=== PATIENT | male | born 1970 | race Caucasian/White ===

== ENCOUNTER 2016-11-03 11:28 | Emergency (ER) | payer OTHER ==
[~2016-11-03] VITALS: Ht 188 cm; Wt 117.8 kg
[~2016-11-03 11:28] MED LIST: CENTRUM ULTRA1 EACH PO; Cozaar PO; FLONASE16 G1 BOTH NARES; KEPPRA250 MG PO; KEPPRA750 MG PO; Keppra PO; LEVAQUIN750 MG PO; LOPRESSOR100 M1 PO; MEDROL DOSEPAK4 MG PO; METOPROLOL SUC100 MG PO; Mevacor PO; NEULASTA6 MG/0.6 M SC; PROAIR HFA8.5 GM IH; TAMIFLU75 MG PO; VALACYCLOVIR1000 MG PO; Vancocin Oral Solution PO; ZYRTEC10 M2 PO
[2016-11-03 12:48] LABS: EOSINOPHIL (%) 0 % (0-5); HEMATOCRIT 43.8 % (38.0-50.0); IMMATURE GRANULOCYTE (%) 0.3 % (0.0-0.7); INSTRUMENT ABS NEUTROPHIL CT 8.9 K/uL; LYMPHOCYTE COUNT 1.1 K/uL (1.0-2.8); MCH 33.3 PG (29.0-34.0); MCHC 34.2 G/DL (30.0-36.0); MCV 97.3 FL (86-99); MEAN PLAT.VOLUME 10.7 uM^3 (9.0-12.4); MONOCYTE (%) 14.3 % (3-12); MONOCYTE COUNT 1.7 K/uL (0-0.8); NEUTROPHIL (%) 75.7 % (45-76); NEUTROPHIL COUNT 8.9 K/uL (1.8-6.4); PLATELET COUNT 177 K/uL (156-360); RBC DIS.WIDTH-CV 11.4 % (11.8-14.6); RBC DIS.WIDTH-SD 41.5 % (39-53); WHITE BLOOD COUNT 11.7 K/uL (4.1-10.2)
[2016-11-03 13:04] LABS: CHLORIDE 101 mEq/L (99-109); SODIUM 139 mEq/L (136-147)
[2016-11-03 13:05] LABS: GLUCOSE 128 mg/dL (70-99)
[2016-11-03 13:07] LABS: ANION GAP 14 MEQ/L (2-14)
[2016-11-03 13:09] LABS: GFR ESTIMATE (CALCULATED) 43 mL/min/
[2016-11-03 13:10] LABS: UREA NITROGEN (BUN) 15 mg/dL (9-23)
[2016-11-03] MEDS ORDERED: BENICAR40 MG PO (13:27)
[2016-11-03] MEDS ORDERED: ALLOPURINOL100 MG PO (13:27)
[2016-11-03] MEDS ORDERED: LEVETIRACETAM1000 MG PO (13:28)
[2016-11-03 13:49] LABS: D-DIMER ELISA 1.55 mg/L FEU (< 0.57)
[2016-11-03 13:52] LABS: TROP-I INTERPRETATION NEGATIVE; TROPONIN-I < 0.01 ng/mL (0.0-0.30)
[2016-11-03 14:30] LABS: INFLUENZA A VIRAL ANTIGEN NEGATIVE; INFLUENZA B VIRAL ANTIGEN NEGATIVE
[2016-11-03 14:36] LABS: ADD MIUA? YES; BILIRUBIN NEGATIVE; BLOOD SMALL; COLOR AMBER ((YELLOW)); GLUCOSE (STRIP) NEGATIVE; KETONES 5; LEUKOCYTES NEGATIVE; NITRITE NEGATIVE; PROTEIN (STRIP) 100; SPECIFIC GRAVITY 1.024 (1.000-1.030); UROBILINOGEN 0.2 MG/DL (0.2-1.0)
[2016-11-03 15:20] LABS: BACTERIA NONE SEEN /HPF; EPITHELIAL CELLS RARE /HPF; MUCUS TRACE /LPF; RED BLOOD CELLS 0-5 /HPF (0-5); UCUL ADDED? NO; WHITE BLOOD CELLS 0-5 /HPF (0-5)
[2016-11-03 15:25] LABS: CRYSTALS NONE SEEN
[2016-11-03 15:26] LABS: CASTS PRESENT /LPF; GRANULAR CASTS RARE /LPF; HYALINE CASTS RARE /LPF
[2016-11-03] MEDS ORDERED: LEVAQUIN750 MG PO (17:55)
[2016-11-03] MEDS ORDERED: TOBREX5 ML BOTH EYES (18:02)
[2016-11-03 18:09] VITALS: BP 138/97
== END 2016-11-03 18:15 | disposition home or self-care (01) ==
LOC: EME 11:28
PROVIDERS: Physician Assistant
DX: J18.9 Pneumonia, unspecified organism (principal); H10.9 Unspecified conjunctivitis; R00.0 Tachycardia, unspecified; E86.0 Dehydration; I12.9 Hypertensive chronic kidney disease with stage 1 through stage 4 chronic kidney disease, or unspecified chronic kidney disease; N18.9 Chronic kidney disease, unspecified; R79.1 Abnormal coagulation profile; Z86.718 Personal history of other venous thrombosis and embolism
CPT/HCPCS: 71020; 71275; 80048; 81003; 83605; 84484; 85025; 85379; 87502; 87651 90; 93005; 99281; 99285; J7030